=== PATIENT | female | born 1975 | race Hispanic/Latino ===

== ENCOUNTER 2022-04-05 21:04 | Emergency (ER) | payer OTHER, MEDICAID ==
[~2022-04-05] VITALS: Ht 165.1 cm; Wt 127.5 kg
[2022-04-05] MEDS ORDERED: ONDANSETRON 4MG INJ ONE (21:30)
[2022-04-05] MEDS ORDERED: MORPHINE 4 MG SYG ONE (21:31)
[2022-04-05] MEDS ORDERED: MORPHINE 4 MG SYG IVP ONE (22:00)
[2022-04-05] MEDS ORDERED: ONDANSETRON 4MG INJ IVP ONE (22:00)
[2022-04-05] MEDS ORDERED: IBUP-2070 PO (23:16)
[2022-04-05 23:27] VITALS: BP 159/81
[2022-04-05] MEDS ORDERED: IBUPROFEN 600 MG TABLET PO ONE (23:30)
[2022-04-05] MEDS ORDERED: BACITRACIN 1 EACH PACKET TP ONE (23:30)
== END 2022-04-05 23:45 | disposition home or self-care (01) ==
LOC: EDH 21:04
DX: S61.411A Laceration without foreign body of right hand, initial encounter (principal); Z79.1 Long term (current) use of non-steroidal anti-inflammatories (NSAID); W25.XXXA Contact with sharp glass, initial encounter; Y93.89 Activity, other specified; Y92.89 Other specified places as the place of occurrence of the external cause; Y99.8 Other external cause status
CPT/HCPCS: 99284; 96374; 96375; 73130; 12002; J2405; J2270